=== PATIENT | female | born 1975 | race Caucasian/White ===

== ENCOUNTER 2016-12-21 10:39 | Emergency (ER) | payer MEDICARE, OTHER ==
[~2016-12-21 10:39] MED LIST: ALPRAZOLAM; ALPRAZOLAM PO; ANUCORT-HC25 MG/SUPP PR; ATENOLOL; CARAFATE PO; CLARITIN10 MG PO; CLEOCIN PO; DILANTIN; DILANTIN PO; EFFEXOR; FERROUS GLUCONATE PO; FERROUS SULFATE PO; FLEXERIL PO; IBUPROFEN PO; KEFLEX PO; KEPPRA750 MG PO; LEXAPRO; LOMOTIL TABLET1 TAB PO; LOPRESSOR PO; MEDROL4 MG/DOSE- PO; METRONIDAZOLE PO; MIDRIN CAPSULE1 CAP PO; NORCO 10/325 TA1 TAB PO; NORVASC; NORVASC PO; PATIENT'S PHARMACY; PERCOCET5/325 PO; PHENERGAN PO; PRILOSEC PO; PROTONIX PO; TAGAMET300 MG PO; TUMS PO; TYLOX 5/500 CAP1 CAP PO; VICODIN 5/1 TAB 5/50 PO; VICODIN 5/500 T1 TAB PO; VICODIN PO; VITAMINS; ZOFRAN PO; [UNRECOGNIZED DRUG - OTHER]; [UNRECOGNIZED DRUG - OTHER] PO; [UNRECOGNIZED DRUG - OTHER] PO
== END 2016-12-21 12:20 | disposition home or self-care (01) ==
LOC: CED 10:39 → CFTX 10:39 → CED 11:40 → CFTX 12:20
DX: K04.7 Periapical abscess without sinus (principal); G40.909 Epilepsy, unspecified, not intractable, without status epilepticus; Z88.5 Allergy status to narcotic agent; Z88.1 Allergy status to other antibiotic agents; Z88.8 Allergy status to other drugs, medicaments and biological substances
CPT/HCPCS: 96372; 99283